=== PATIENT | female | born 1975 | race Caucasian/White ===

== ENCOUNTER 2024-08-31 09:48 | Emergency (ER) | payer MEDICAID, OTHER ==
[~2024-08-31] VITALS: Ht 170.2 cm; Wt 65.0 kg
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
[2024-08-31] MEDS: HYDROcodone-ACET 5/325MG TAB PO ONE (11:30)
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
--- NOTE | 2024-08-31 11:43 | DVH ---
XY L KNEE 2V XRAY, INDICATION: injury TECHNICAL DATA: Frontal and lateral views were obtained of the left knee. COMPARISON: None FINDINGS: No fracture is identified. Medial, lateral and patellofemoral compartment joint spaces are maintained . Alignment is anatomic. Soft tissues are within normal limits. No joint effusion is demonstrated. IMPRESSION: No acute fracture or dislocation of the left knee.
[2024-08-31 12:18] VITALS: BP 98/50; PULSE 90; RESP 20; TEMP 98.1; O2SAT 96
== END 2024-08-31 13:18 | disposition home or self-care (01) ==
LOC: ER 09:48 → EDBD 09:48 → ER 13:18
DX: M54.2 Cervicalgia (principal); Y99.8 Other external cause status; Y08.89XA Assault by other specified means, initial encounter; Y93.89 Activity, other specified; Y92.89 Other specified places as the place of occurrence of the external cause
CPT/HCPCS: 72040; 72100; 73560